=== PATIENT | female | born 1935 | race Caucasian/White ===

== ENCOUNTER 2022-04-10 13:34 | Emergency (ER) | payer OTHER ==
[~2022-04-10] VITALS: Ht 160 cm; Wt 56.7 kg
[2022-04-10 13:36] VITALS: BP 129/77
--- NOTE | 2022-04-10 14:00 | NUR ---
ASSUMED PATIENT CARE, NURSING ASSESSMENT COMPLETED.
[2022-04-10] MEDS ORDERED: TERB-5 PO (14:12)
[2022-04-10] MEDS ORDERED: CARB100T PO (14:12)
[2022-04-10] MEDS ORDERED: MULT-2540 PO (14:12)
[2022-04-10] MEDS ORDERED: LORA-476 PO (14:12)
[2022-04-10] MEDS ORDERED: ACET-10509 PO (14:12)
[2022-04-10] MEDS ORDERED: AMLO2.5T PO (14:12)
[2022-04-10] MEDS ORDERED: FOSI20TA PO (14:12)
[2022-04-10] MEDS ORDERED: [UNRECOGNIZED DRUG - CODE] PO (14:12)
[2022-04-10] MEDS ORDERED: ESCI5TAB PO (14:12)
[2022-04-10] MEDS ORDERED: DOCU-299 PO (14:12)
[2022-04-10] MEDS ORDERED: GABA400C PO (14:12)
--- NOTE | 2022-04-10 14:12 | NUR ---
TO CT VIA [facility].
[2022-04-10] MEDS ORDERED: ZIPRASIDONE MESYLATE 20 MG/ML VIAL IM ONE (14:30)
[2022-04-10 16:36] VITALS: BP 135/62
--- NOTE | 2022-04-10 16:41 | NUR ---
Patient discharged with v/s stable. Written and verbal after care instructions given and explained. Patient verbalized understanding. Wheel Chair Assisted with to car. All questions addressed prior to discharge. Advised to follow up with PMD.
== END 2022-04-10 16:36 | disposition home or self-care (01) ==
LOC: MED 13:34
DX: S09.90XA Unspecified injury of head, initial encounter (principal); R51.9 Headache, unspecified; I10 Essential (primary) hypertension; F03.90 Unspecified dementia, unspecified severity, without behavioral disturbance, psychotic disturbance, mood disturbance, and anxiety; W19.XXXA Unspecified fall, initial encounter; Y93.89 Activity, other specified; Y92.89 Other specified places as the place of occurrence of the external cause; Y99.8 Other external cause status
CPT/HCPCS: 70450; 99284